=== PATIENT | male | born 1975 | race Two or more races ===

== ENCOUNTER 2019-04-27 07:26 | Emergency (ER) | payer OTHER ==
[~2019-04-27] VITALS: Ht 170.2 cm; Wt 70.3 kg
[2019-04-27 07:27] VITALS: Ht 170.2 cm; Wt 70.3 kg
[2019-04-27 09:20] VITALS: BP 124/79
== END 2019-04-27 09:20 | disposition home or self-care (01) ==
LOC: ED 07:26
DX: S61.012A Laceration without foreign body of left thumb without damage to nail, initial encounter (principal); E78.00 Pure hypercholesterolemia, unspecified; Z89.012 Acquired absence of left thumb; W26.9XXA Contact with unspecified sharp object(s), initial encounter; Y93.89 Activity, other specified; Y92.89 Other specified places as the place of occurrence of the external cause; Y99.8 Other external cause status
CPT/HCPCS: 90715; J0690; J1885; J3490; J7060; Q0092